=== PATIENT | female | born 1980 | race Caucasian/White ===

== ENCOUNTER 2022-10-09 07:31 | Outpatient (CLI) | payer BC, SELFPAY | END 2022-10-09 07:32 | disposition home or self-care (01) | LOC: NFLDREF 10-10 08:27 | PROVIDERS: PCP Physician Assistant Medical; Referring Provider Physician Assistant Medical; Visit Provider Physician Assistant Medical | DX: E66.01 Morbid (severe) obesity due to excess calories (principal); Z13.6 Encounter for screening for cardiovascular disorders; Z13.29 Encounter for screening for other suspected endocrine disorder | CPT/HCPCS: 80053; 80061; 84443 ==

== ENCOUNTER 2023-01-23 09:44 | Outpatient (CLI) | payer BC, SELFPAY ==
[2023-01-23 15:18] LABS: Chlamydia DNA Amplified* NOT DETECTED (No Detected); GC DNA Amplified* NOT DETECTED (No Detected)
== END 2023-01-23 09:45 | disposition home or self-care (01) ==
PROVIDERS: PCP Physician Assistant Medical; Visit Provider Registered Nurse
DX: Z20.2 Contact with and (suspected) exposure to infections with a predominantly sexual mode of transmission (principal); Z30.9 Encounter for contraceptive management, unspecified
CPT/HCPCS: 87491; 87591

== ENCOUNTER 2023-11-24 10:04 | Outpatient (CLI) | payer BC, SELFPAY ==
--- OUTSIDE RECORDS SUMMARY | 2023-11-26 11:32 | XMS_ITS | Clinical Summary ---
Author Organization [facility] Address [address] [place] [address] Care Team Providers Care Enterprise Records Analyst Name Role Phone Pcp, Pt Ember READ Primary Care Provider [phone] Source Comments You are receiving this document as you are listed as the primary care provider,follow-up provider, or the patient has been referred to you for consultation.This is in compliance with the Medicare and[facility] EHR Incentive Program,which states Providers who transition their patient to another setting of careor provider of care or refers their patient to another provider of care shouldprovide summary care record for each transition of care or referral. [email or web address] Allergies Active Allergy Reactions Criticality Noted Date Comments Erythromycin 10/31/2009 PN: LW Reaction: Unknown Reaction Sulfa Antibiotics 10/31/2009 PN: LW Reaction: EDEMA, GENERALIZED Medications Medication Sig Dispensed Refills Start Date End Date Status Multiple Vitamins-Minerals (MULTIVITAMIN OR) Take 1 tablet by mouth daily (every 24 hours). 100 13 10/31/2009 Active norethindrone liya-ethinyl estradoil-FE (GILDESS FE 1.5/30) 1.5-30 MG-MCG tabletIndications:MERARY ESPOSITO FriFeb 10, 2015 8:44 AM Received from: External Pharmacy Indications: PN: MERARY MORALES FriFeb 10, 2015 8:44 AM Received from: External Pharmacy 02/05/2015 Active methylPREDNISolone (MEDROL 21 TABLET DOSEPACK) 4 MG tablet Take as directed. 21 Tablet 10/08/2022 Active Active Problems Problem Noted Date Diagnosed Date delivery delivered 08/28/2012 Family History Medical History Relation Name Comments Arthritis Mother Cancer Mother Relation Name Status Comments Mother Social History Tobacco Use Types Packs/Day Years Used Date Smoking Tobacco: Never Alcohol Use Standard Drinks/Week Comments Yes 0 (1 standard drink = 0.6 oz pur e alcohol) Sex and Gender Information Value Date Recorded Sex Assigned at Not on file Gender Identity Not on file Sexual Orientation Not on file Last Filed Vital Signs Vital Sign Reading Time Taken Comments Blood Pressure 109/73 02/10/2015 8:43 AM DIRECTOR OF FLIGHT OPERATIONS Pulse 53 02/10/2015 8:43 AM DIRECTOR OF FLIGHT OPERATIONS Temperature 37.8 ??C (100 ??F) 10/31/2009 8:46 AM CDT C: 37.8 C Respiratory Rate - - Oxygen Saturation - - Inhaled Oxygen Concentration - - Weight 72.6 kg (160 lb) 02/10/2015 8:43 AM DIRECTOR OF FLIGHT OPERATIONS Height 157.5 cm (5' 2) 02/10/2015 8:43 AM DIRECTOR OF FLIGHT OPERATIONS Body Mass Index 29.26 02/10/2015 8:43 AM DIRECTOR OF FLIGHT OPERATIONS Plan of Treatment Health Maintenance Due Date Last Done Comments Cervical Cancer Screening Due 1980 Hep C Screening (Preventive Services) 1980 Mammogram 1980 HIV Screening (Preventive Services) 1996 Adult Preventive Visit 1998 HepB (1) 12/29/1999 COVID-19 Vaccine ( season) 2023 12/22/2020, 06/22/2020, 05/25/2020 Influenza (#1) 2023 12/19/2018, 1004/2017, 11/27/2016, Additional history exists Zoster/Shingles (1 of 2) 2030 DTaP/Tdap/Td (3 - Tdap) 01/22/2032 01/21/2022, 10/22 HPV Vaccine Aged Out No longer eligi ble based on patient's age to complete this topic HepA Aged Out No longer eligi ble based on patient's age to complete this topic Hib Aged Out No longer eligi ble based on patient's age to complete this topic IPV (Polio) Aged Out No longer eligi ble based on patient's age to complete this topic Infant RSV Aged Out No longer eligi ble based on patient's age to complete this topic MCV4 Aged Out No longer eligi ble based on patient's age to complete this topic Pneumococcal Aged Out No longer eligi ble based on patient's age to complete this topic Care Teams Enterprise Records Analyst Relationship Specialty Start Date End Date Pcp, Pt MD Ember [place], [place] [id number] PCP - General 01/25/15
--- OUTSIDE RECORDS SUMMARY | 2023-11-26 11:32 | XMS_ITS | Continuity of Care Document ---
Author Organization [address], [place] [address] Insurance Providers Payer Plan Claims Address Claims Phone Policy Number Group Number Relation Employer Guarantor Name Guarantor Guarantor Address Guarantor Phone [employer] [address] [address], [place] [address] tel:[phone] Self Heather Fredericksandy [id number] [place] [address] [id number] [employer] [address], [place] [address] [phone] Self Heather Haq Grady [id number] [place] [address] [id number] [employer] [address] [address], [place] [address] tel:[phone] Self Heather Rasmussen 1980 [id number] [place], [place] [id number] Problems Condition ICD9 code ICD10 code SNOMED code Start Date End Date S tatus Morbid (severe) obesity due to excess calories E66.01 Final Encounter for contraceptive management, unspecified Z30.9 Final Encounter for general adult medical examination without abnormal findings Z00.00 Final Encounter for initial prescription of contraceptive pills Z30.011 Final Encounter for contraceptive management, unspecified Z30.9 Admitting Encounter for contraceptive management, unspecified Z30.9 Final Encounter for contraceptive management, unspecified Z30.9 Final Contact with and (suspected) exposure to infections with a predominantly sexual mode of transmission Z20.2 Ivelisse tran Anxiety disorder, unspecified F41.9 Final Morbid (severe) obesity due to excess calories E66.01 Final Morbid (severe) obesity due to excess calories E66.01 Final Encounter for immunization Z23 Morbid (severe) obesity due to excess calories E66.01 Menopausal and female climacteric states N95.1 Results No Results Allergies, adverse reactions, alerts No known allergies and adverse reactions Medications No administered medications reported Vital Signs No vital signs reported Social History No smoking Hx information available
--- OUTSIDE RECORDS SUMMARY | 2023-11-26 11:32 | XMS_ITS | Clinical Summary ---
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 Blood product orders may be delayed. Draw 2 purple and 1 red top tubes for all Type/Screen orders. Erythromycin Dyspnea 08/26/2012 Sulfa (Sulfonamide Antibiotics) Anaphylaxis 10/19/2008 Medications Medication Sig Dispensed Refills Start Date End Date Status ibuprofen (MOTRIN IB) 200 mg tablet Take 1-3 tablets by mouth every 6 hours if needed for Other (Specify) (for uterine cramping). Take with food. 100 tablet 0 08/31/2012 Active Active Problems Problem Noted Date Diagnosed Date delivery delivered 08/28/2012 Previous delivery, antepartum condition or complication 12/03/2010 S/P repeat low transverse 12/03/2010 delivery 10/23/2008 Immunizations Name Administration Dates Next Due Influenza, IIV3 (Age >=3 years) 10/31/2010 Tdap 10/22/2008 Social History Tobacco Use Types Packs/Day Years Used Date Smoking Tobacco: Never Smokeless Tobacco: Never Alcohol Use Standard Drinks/Week Comments No 0 (1 standard drink = 0.6 oz pur e alcohol) socially-none with Sex and Gender Information Value Date Recorded Sex Assigned at Not on file Gender Identity Not on file Sexual Orientation Not on file Obstetrics History Para Term AB IAB SAB Ectopic Multiple Livin g Live Births 3 3 3 0 0 0 0 0 0 2 2 Date Outcome GA Total Labor Labor/2nd/3rd Weight Sex Type Anes PTL Niurka A1 A5 Name Clin 2008 Term 40w 6d 4.08 kg (9 lb) M C-Sec tion Epidur al N Livin g Philip BalbuenaChris t Delivery Location:[facility] Comments: tachyca rdia,macarosomia 2010 Term 39w 1d 3.35 kg (7 lb 6 oz) F C-Sec tion Livin g 7 9 WHIRLE Y,BG Delivery Location:[facility] 2012 Term 39w 1d F C-Sec tion WHIRLE Y,BG Delivery Location:[facility] Last Filed Vital Signs Vital Sign Reading Time Taken Comments Blood Pressure 156/81 08/31/2012 9:00 AM CDT Pulse 87 08/31/2012 9:00 AM CDT Temperature 36.7 ??C (98 ??F) 08/31/2012 9:00 AM CDT Respiratory Rate 20 08/31/2012 9:00 AM CDT Oxygen Saturation 98% 08/30/2012 4:00 PM CDT Inhaled Oxygen Concentration - - Weight 84.7 kg (186 lb 12.8 oz) 08/28/2012 4:29 AM CDT Height 154.9 cm (5' 1) 08/28/2012 4:51 AM CDT Body Mass Index 35.3 08/28/2012 4:29 AM CDT Plan of Treatment Health Maintenance Due Date Last Done Comments Depression screening for age 12+ 1992 HIV for age 15-65 12/29/1995 BMI (ht and wt on same day) for age 18+ 1998 Hepatitis C screening for ag e 18-79 1998 Pap test for age 21-65 2001 Tetanus booster 10/22/2018 10/22/2008 COVID-19 vaccine series (2023- season) 2023 Influenza for age 9-49 10/26/2023 10/31/2010 Tdap Completed 10/22/2008 Pneumococcal series for age 6-64 Aged Out No longer eligible based on patient's age to complete this topic Advance Directives * Full Code (Latest Code Status on File) Date Activated Date Inactivated Comments 08/28/2012 9:37 AM 08/31/2012 1:22 PM * Full Code Date Activated Date Inactivated Comments 08/28/2012 4:28 AM 08/28/2012 9:37 AM * Full Code Date Activated Date Inactivated Comments 12/03/2010 10:10 AM 12/06/2010 3:03 PM * Full Code Date Activated Date Inactivated Comments 12/03/2010 8:28 AM 12/03/2010 8:38 AM * Full Code Date Activated Date Inactivated Comments 12/03/2010 8:09 AM 12/03/2010 8:28 AM Care Teams Adolescent Coordinator Relationship Specialty Start Date End Date Nadira Nicolas MD PCP - General 08/24/08
== END 2023-11-24 10:05 | disposition home or self-care (01) ==
LOC: NFLDREF 11-26 11:29
PROVIDERS: PCP Physician Assistant Medical; Referring Provider Physician Assistant Medical; Visit Provider Physician Assistant Medical
DX: E66.01 Morbid (severe) obesity due to excess calories (principal); N95.1 Menopausal and female climacteric states
CPT/HCPCS: 80053; 80061; 82306; 82607; 82728; 84443

== ENCOUNTER 2024-12-27 08:27 | Outpatient (CLI) | payer OTHER, SELFPAY | END 2024-12-27 08:28 | disposition home or self-care (01) | LOC: NFLDREF 12-30 11:06 | PROVIDERS: PCP Physician Assistant Medical; Referring Provider Physician Assistant Medical; Visit Provider Physician Assistant Medical | DX: E55.9 Vitamin D deficiency, unspecified (principal) | CPT/HCPCS: 80053; 80061; 82306; 84443 ==